=== PATIENT | female | born 1935 | race Caucasian/White ===

== ENCOUNTER → 2018-04-22 16:26 | Outpatient (REF) | payer MEDICARE, OTHER, SELFPAY | LOC: NCHCN 16:26 | PROVIDERS: PCP Internal Medicine; Visit Provider Internal Medicine | DX: N39.0 Urinary tract infection, site not specified (principal) | CPT/HCPCS: 87077; 87086; 87186 ==

== ENCOUNTER 2018-09-16 15:12 | Outpatient (REF) | payer MEDICARE, OTHER, SELFPAY ==
[2018-09-16 18:34] LABS: HCT 42.4 % (36.0-46.0); HGB 13.7 g/dL (12.0-15.5); Mean Corp. HGB Concentration 32.3 g/dL (32.0-36.0); Mean Corpuscular Hemoglobin 29.8 pg (27.0-33.0); Mean Corpuscular Volume 92.2 fL (80-95); Mean Platelet Volume 10.9 fL (8.0-11.0); Platelet Count 231 x1000/uL (130-400); RBC Distribution Width 13.8 % (11.7-14.6); White Blood Cell Count 8.24 k/cumm (4.4-10.8)
[2018-09-16 18:54] LABS: ALT 19 U/L (12-78); Anion Gap 8.2 mmol/L (3-11); BUN 20 mg/dL (7-18); CO2 29.8 mmol/L (21.0-32.0); CREATININE 0.84 mg/dL (0.55-1.02); Calcium 9.5 mg/dL (8.5-10.1); Chloride 108 mmol/L (98-107); Cholesterol 147 mg/dL (50-200); Glucose 104 mg/dL (70-100); HDL Cholesterol 39 mg/dL (40-60); LDL CHOLESTEROL 86 mg/dL (<100); Potassium 4.3 mmol/L (3.5-5.1); Sodium 146 mmol/L (136-145); TSH 0.81 uIU/mL (0.358-3.74); Triglyceride 202 mg/dL (30-150)
== END 2018-09-16 15:32 ==
LOC: NCHCN 15:12
PROVIDERS: PCP Internal Medicine; Visit Provider Internal Medicine
DX: I48.0 Paroxysmal atrial fibrillation (principal); R78.5 Finding of other psychotropic drug in blood; E11.9 Type 2 diabetes mellitus without complications
CPT/HCPCS: 80048; 80061; 83721; 85027; 84443; 84460

== ENCOUNTER 2018-10-13 13:17 | Outpatient (REF) | payer MEDICARE, OTHER, SELFPAY ==
--- NOTE | 2018-10-13 12:00 | PAPNONF_PTH ---
PATIENT: Jennifer Suggs LOC: [facility] U#:[id number] AGE/SX: 83/F ROOM: RE10/13/[address]: Roger Solorio : 1935 BED: DIS: 10/13/2018 SPEC #: [id number] RECD: 10/14/18 12:41 STATUS: ASHLEY REQ #: [id number] DIONTE: 10/13/18 12:[address]: Roger Solorio DEPT: [facility] Cytology RECD BY: Aretha Jarrell Tissues: 1 - BODY FLUID CYTO(SPUTUM/URINE)[facility] Procedures: BODY FLUID CYTO(URINE/SPUTUM) Comments: [id number] (TOTAL VOLUME = 60 ml's) (30 ml'S URINE & 30 ml'S CYTOLYT ADDED IN 2 CONTAINERS)
== END 2018-10-13 13:37 ==
LOC: NCHCN 13:17
PROVIDERS: PCP Internal Medicine; Visit Provider Internal Medicine
DX: N39.0 Urinary tract infection, site not specified (principal); R31.9 Hematuria, unspecified; R82.8 Abnormal findings on cytological and histological examination of urine
CPT/HCPCS: 87077; 87086; 87186; 88104

== ENCOUNTER 2018-11-05 12:09 | Outpatient (REF) | payer MEDICARE, OTHER, SELFPAY ==
[2018-11-05 19:36] LABS: HCT 41.1 % (36.0-46.0); HGB 13.4 g/dL (12.0-15.5); Mean Corp. HGB Concentration 32.6 g/dL (32.0-36.0); Mean Corpuscular Hemoglobin 29.8 pg (27.0-33.0); Mean Corpuscular Volume 91.3 fL (80-95); Mean Platelet Volume 10.3 fL (8.0-11.0); Platelet Count 281 x1000/uL (130-400); White Blood Cell Count 7.32 k/cumm (4.4-10.8)
[2018-11-05 20:09] LABS: Bacteria Moderate HPF (Negative); C & S Indicated? Yes; Casts Negative LPF (Negative); Crystals Negative HPF (Negative); Epithelial Cells Negative HPF (Negative); Mucus Negative (Negative); Other Cells Negative (Negative); RBC >50 (0-2); WBC >50 HPF (0-5)
[2018-11-05 20:25] LABS: FREE T4 1.35 ng/dL (0.76-1.46); TSH 3.28 uIU/mL (0.358-3.74)
== END 2018-11-05 12:29 ==
LOC: NCHCN 12:09
PROVIDERS: PCP Internal Medicine; Visit Provider Internal Medicine
DX: I50.9 Heart failure, unspecified (principal); I48.0 Paroxysmal atrial fibrillation; R31.0 Gross hematuria; E11.9 Type 2 diabetes mellitus without complications
CPT/HCPCS: 85027; 87077; 81015; 84439; 84443; 87086; 87186

== ENCOUNTER → 2018-11-29 14:28 | Outpatient (BNVA) | payer MEDICARE, OTHER, SELFPAY | PROVIDERS: PCP Internal Medicine; Visit Provider Nurse Practitioner Gerontology | DX: R31.0 Gross hematuria (principal); I11.0 Hypertensive heart disease with heart failure; I50.9 Heart failure, unspecified; N20.0 Calculus of kidney | CPT/HCPCS: 81003; 99204 ==

== ENCOUNTER 2018-11-29 16:08 | Outpatient (REF) | payer MEDICARE, OTHER, SELFPAY ==
[2018-11-29 17:18] LABS: Bacteria Moderate HPF (Negative); C & S Indicated? C&S Done As Ordered; RBC >50 (0-2)
== END 2018-11-29 16:28 ==
LOC: LBN 16:08
PROVIDERS: PCP Internal Medicine; Visit Provider Nurse Practitioner Gerontology
DX: R31.9 Hematuria, unspecified (principal)
CPT/HCPCS: 81015; 87086

== ENCOUNTER → 2018-12-21 09:16 | Outpatient (BNVA) | payer MEDICARE, OTHER, SELFPAY | PROVIDERS: PCP Internal Medicine; Visit Provider Urology | DX: R31.29 Other microscopic hematuria (principal); N39.0 Urinary tract infection, site not specified; N20.0 Calculus of kidney; E11.9 Type 2 diabetes mellitus without complications | CPT/HCPCS: 81003; 99213; 96372; J0696 ==

== ENCOUNTER 2018-12-21 10:51 | Outpatient (REF) | payer MEDICARE, OTHER, SELFPAY | END 2018-12-21 11:11 | LOC: LBN 10:51 | PROVIDERS: PCP Internal Medicine; Visit Provider Urology | DX: R31.9 Hematuria, unspecified (principal) | CPT/HCPCS: 87086 ==

== ENCOUNTER 2019-05-09 15:03 | Outpatient (REF) | payer MEDICARE, OTHER, SELFPAY ==
[2019-05-09 19:37] LABS: TSH 2.41 uIU/mL (0.36-3.74)
== END 2019-05-09 15:23 ==
LOC: NCHCN 15:03
PROVIDERS: PCP Internal Medicine; Visit Provider Internal Medicine
DX: E11.9 Type 2 diabetes mellitus without complications (principal); I48.0 Paroxysmal atrial fibrillation; N20.9 Urinary calculus, unspecified; L84 Corns and callosities
CPT/HCPCS: 84443

== ENCOUNTER 2019-10-13 21:18 | Outpatient (REF) | payer MEDICARE, OTHER, SELFPAY ==
[2019-10-13 19:20] LABS: HCT 41.5 % (36.0-46.0); HGB 13.1 g/dL (12.0-15.5); Mean Corp. HGB Concentration 31.6 g/dL (32.0-36.0); Mean Corpuscular Hemoglobin 29.5 pg (27.0-33.0); Mean Corpuscular Volume 93.5 fL (80-95); Mean Platelet Volume 10.7 fL (8.0-11.0); Platelet Count 215 x1000/uL (130-400); RBC 4.44 m/cumm (4.00-5.20); RBC Distribution Width 14.1 % (11.7-14.6); White Blood Cell Count 6.08 k/cumm (4.4-10.8)
[2019-10-13 20:07] LABS: TSH 1.93 uIU/mL (0.36-3.74); Vitamin B12 958 pg/mL (193-986)
== END 2019-10-13 21:38 ==
LOC: NCHCN 21:18
PROVIDERS: PCP Internal Medicine; Visit Provider Internal Medicine
DX: G25.0 Essential tremor (principal); G30.9 Alzheimer's disease, unspecified; I48.0 Paroxysmal atrial fibrillation; H35.61 Retinal hemorrhage, right eye
CPT/HCPCS: 85027; 82607; 84443

== ENCOUNTER 2020-06-25 15:05 | Outpatient (REF) | payer MEDICARE, OTHER, SELFPAY ==
[2020-06-25 19:28] LABS: HCT 43.4 % (36.0-46.0); MCH 30.2 pg (27.0-33.0); MCHC 32.3 % (32.0-36.0); MCV 93.7 fL (80-95); MPV 10.4 fL (8.0-11.0); Platelet Count 218 10^3/uL (130-400); RBC 4.63 10^6/uL (3.93-5.22); RDW 12.9 % (11.7-14.6); RDW-SD 44.1 fL; WBC 7.38 10^3/uL (4.4-10.8)
[2020-06-25 20:00] LABS: TSH 1.51 uIU/mL (0.36-3.74)
== END 2020-06-25 15:25 ==
LOC: NCHCN 15:05
PROVIDERS: PCP Internal Medicine; Visit Provider Internal Medicine
DX: E11.9 Type 2 diabetes mellitus without complications (principal); I48.0 Paroxysmal atrial fibrillation; E66.9 Obesity, unspecified
CPT/HCPCS: 85027; 84443

== ENCOUNTER 2020-09-27 14:56 | Outpatient (REF) | payer SELFPAY ==
[2020-09-27 15:42] LABS: COMMENT (LAB VIEW ONLY) 89.05 mg/dL; Microalb ug/mg Crea 23.1 ug/mg Cr
== END 2020-09-27 15:16 ==
LOC: NCHCN 14:56
PROVIDERS: PCP Internal Medicine; Visit Provider Internal Medicine
DX: E11.9 Type 2 diabetes mellitus without complications (principal); I48.0 Paroxysmal atrial fibrillation; G30.9 Alzheimer's disease, unspecified
CPT/HCPCS: 82043; 82570

== ENCOUNTER 2021-02-06 11:29 | Outpatient (REF) | payer OTHER, SELFPAY ==
--- OUTSIDE RECORDS SUMMARY | 2021-02-06 11:31 | XMS_ITS ---
:1935 Author Care Team Providers Name Role Phone AR LARA MD Primary Care Provider [phone] FELICIANO HELMS MD Applique Cutter [phone] Allergies Code Code System Name Reaction Severity Status Onset Sulfa ? ? Active ? (Sulfonamid e Antibiotics ) Medications Name Status Start Date Stop Date ? ? acetazolamide 250 mg tablet Active ? Not available Take 1 tablet every 6 hours by oral route. amiodarone 200 mg tablet Completed ? 019 amoxicillin 250 mg capsule Completed ? 05/16 Take 250 mg 3 times a day by oral route. amoxicillin 500 mg capsule Completed ? 07/20 amoxicillin 500 mg tablet Completed ? 2018 Take 500 mg 3 times a day by oral route. first dose at home in the evening on 05/16/18 anastrozole 1 mg tablet Active ? Not avai lable Aspirin Low-Strength 81 mg chewable tablet Completed ? 07/20/2019 Chew 81 mg every day by oral route. atorvastatin 10 mg tablet Active ? Not av ailable Carafate 1 gram tablet Completed ? 9 Take 1 tablet 4 times a day by oral route. Cartia XT 120 mg capsule,extended Active ? Not available release Cartia XT 180 mg capsule,extended Completed ? 07/20/2019 release cephalexin 500 mg capsule Completed ? 2018 DILT-XR 120 mg capsule, extended Active ? Not available release diltiazem ER 180 mg capsule,24 hr,extended release Active ? Not available Take 1 capsule every day by oral route. furosemide 40 mg tablet Completed ? 07/20/20 19 glipizide 10 mg tablet Active ? Not avail able Take 1 tablet every day by oral route. glipizide ER 10 mg tablet, Completed ? 05/16 extended release 24 hr glipizide ER 5 mg tablet, Active ? Not av ailable extended release 24 hr lisinopril 10 mg tablet Completed ? 07/20/20 19 lisinopril 20 Active ? Not available mg-hydrochlorothiazide 12.5 mg tablet metformin 850 mg tablet Active ? Not avai lable methimazole 5 mg tablet Active ? Not avai lable metoprolol succinate ER 100 mg Active ? N ot available tablet,extended release 24 hr metoprolol succinate ER 200 mg Completed ? 1 09/19/2018 tablet,extended release 24 hr metoprolol tartrate 50 mg tablet Active ? Not available nitrofurantoin 100 mg capsule Completed ? Take 1 capsule twice a day by oral route. omeprazole 20 mg capsule,delayed Active ? Not available release ondansetron 4 mg disintegrating tablet Completed ? 07/20/2019 Take 1 tablet every 6 hours by oral route. pioglitazone 15 mg tablet Completed ? 2017 PreserVision AREDS Active ? Not available 1 tablet by mouth once daily sulfamethoxazole 800 Active ? Not availab le mg-trimethoprim 160 mg tablet timolol maleate 0.5 % eye drops Active ? Not available Toprol XL 50 mg tablet,extended release Completed 04/20/20 12 05/23/2016 1 Tablet ER 24HR Tablet ER 24HR: daily Tylenol-Codeine #3 300 mg-30 mg tablet Active ? Not available Take 1 tablet every 6 hours by oral route. warfarin 2.5 mg tablet Active ? Not avail able Zocor 20 mg tablet Completed 04/20/2012 05/23/2016 1 Tablet Tablet: daily Problems Name Status Onset Date Source ? Idiopathic Osteoarthritis Active ? 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 Histor y Procedure by Method Active ? History Umbilical Hernia Active ? History Procedures Date Name Performed by ? 04/13/2012 Hernia Repair Information not avai labtri Notes: Umbilical/incarcerated 05/09/2002 Cholecystectomy Information not avai lable 02/10/2019 US, Echocardiogram [facility] (Internal) [address] [place] [address] (Work Place) 07/20/2019 Event Monitor [facility] Cardio pulmonary [address] [place] [address] (Work Place) Notes: Left Masectomy Results Lab Results Date Name Specimen Result Interpretation Description Value Range Status Address ? 07/11/2019 Troponin I, S - Trop <0.06 NG/mL 0.00-0.06 [facility] Serum or Plasma NG[facility] [address] t 07/11/2019 CMP, Serum or S High g/r 152 mg/dL 74-106 Fin al [place] Plasma mg/dL [facility] [address] t ? ? S - Bun 15 mg/dL 7-17 mg/dL Final Nort h [facility] (Internal) : [address] t ? ? S - Crea 0.70 mg/dL 0.52-1.04 Final Nor th mg/dL [facility] ([facility] : [address] t ? ? S - Ca 9.8 mg/dL 8.4-10.2 Final [facility] mg/dL [facility] ([facility] : [address] ? ? S - Na 140 mmol/L 137-145 Final North mmol/L [facility] (Internal) : [address] t ? ? S - K 4.2 mmol/L 3.5-5.1 Final [place] mmol/L [facility] (Internal) : [address] t ? ? S - Cl 102 mmol/L 98-107 Final [place] mmol/L [facility] (Internal) : [address] t ? ? S High Tco2 31.0 mmol/L 22.0-30.0 Final No rth mmol/L [facility] ([facility]) : [address] ? ? S - Tp 6.6 g/dL 6.3-8.2 Final [place] g/dL [facility] (Internal) : [address] t ? ? S - Alb 3.8 g/dL 3.5-5.0 Final [place] g/dL [facility] (Internal) : [address] t ? ? S - Tbil 0.3 mg/dL 0.2-1.3 Final [place] mg/dL [facility] (Internal) : [address] t ? ? S - Alp 83 U/L 38-126 U/L Final [facility] (Internal) : [address] t ? ? S - Alt 20 U/L 9-52 U/L Final [place] (Sgpt) [facility] (Internal) : [address], [place] t ? ? S - Ast 22 U/L 14-36 U/L Final [place] (Sgot) [facility] (Internal) : [address] 07/11/2019 CBC W/ Auto BLD - Wbc 5.9 10*3/uL 5.0-10.0 F inal [place] Diff 10*3/uL [facility] ([facility] : [address] ? ? BLD - Rbc 4.33 4.10-5.30 Final North 10*6/uL 10*6/uL [facility] ([facility]) : [address] t ? ? BLD - Hgb 12.8 g/dL 12.0-16.0 Final Nort h g/dL [facility] (Internal) : [address] ? ? BLD - Hct 40.6 % 37.0-47.0 Final [facility] L [facility] (Internal) : [address] ? ? BLD - Mcv 93.8 fL 80.0-96.0 Final [facility] (Internal) : [address] ? ? BLD - Mch 29.6 pg 26.0-32.0 Final [place] pg [facility] (Internal) : [address] ? ? BLD - Mchc 31.5 g/dL 31.0-35.0 Final Nort h g/dL [facility] (Internal) : [address] ? ? BLD - Rdw 13.6 % 11.5-14.5 Final [facility] (Internal) : [address] ? ? BLD - Plt 188 10*3/uL 130-450 Final Nort h 10*3/uL [facility] (Internal) : [address] t ? ? BLD - Anc 3.13 ? Final [place] 10*3/uL [facility] (Internal) : [address] t ? ? BLD - Neutro 53.4 % 40.0-75.0 Final [facility] (Internal) : [address] [facility] ? ? BLD - Lymph 33.8 % 20.0-50.0 Final [facility] (Internal) : [address] [facility] ? ? BLD - Will 9.1 % 2.0-10.0 % Final [facility] (Internal) : [address] [facility] ? ? BLD - Eos 2.6 % 1.0-6.0 % Final [facility] (Internal) : [address] [facility] ? ? BLD - Baso 0.9 % 0.0-1.0 % Final [facility] (Internal) : [address] [facility] ? ? BLD - Ig 0.2 % 0.0-0.9 % Final [facility] (Internal) : [address] [facility] 07/11/2019 Magnesium, QN, S - mg 2.0 mg/dL 1.6-2.3 F inal [place] Serum or Plasma mg/dL [facility] L [facility] (Internal) : [address] [facility] 07/11/2019 CK (Creatine S Low Cpk <20 U/L 30-135 U/L [facility] Kinase), Total, C [facility] L ab (Internal) : [address] [facility] 07/11/2019 Prothrombin BLD - Pt 11.6 S 9.1-11.7 S Sujata l [facility] L ab (Internal) : [address] [facility] ? ? BLD - Inr 1.2 ? [facility] L ab (Internal) : [address] [facility] 07/11/2019 Partial BLD - PTT 23 s 22-35 s Final Nort h Thromboplastin (Ip) [facility] L ab (Internal) : [address] [facility] 07/11/2019 Troponin I, S - Trop <0.06 NG/mL 0.00-0.06 [facility] Serum or Plasma NG/mL [facility] L [facility] (Internal) : [address] [facility] 06/13/2019 CBC W/ Auto BLD - Wbc 7.7 10*3/uL 5.0-10.0 F inal [place] Diff 10*3/uL [facility] (Internal) : [address] ? ? BLD - Rbc 4.54 4.10-5.30 Final North 10*6/uL 10*6/uL [facility] (Internal) : [address] ? ? BLD - Hgb 13.7 g/dL 12.0-16.0 Final Nort h g/dL [facility] (Internal) : [address] t ? ? BLD - Hct 41.5 % 37.0-47.0 Final [facility] L [facility] (Internal) : [address] t ? ? BLD - Mcv 91.4 fL 80.0-96.0 Final [facility] (Internal) : [address] t ? ? BLD - Mch 30.2 pg 26.0-32.[address] [facility] L [facility] (Internal) : [address] t ? ? BLD - Mchc 33.0 g/dL 31.0-35.0 Final Nort h g/dL [facility] (Internal) : [address] t ? ? BLD - Rdw 13.8 % 11.5-14.5 Final [facility] L ab (Internal) : [address] t ? ? BLD - Plt 170 10*3/uL 130-450 Final Nort h 10*3/uL [facility] (Internal) : [address] t ? ? BLD - Anc 5.72 ? Final [place] 10*3/uL [facility] (Internal) : [address] t ? ? BLD - Neutro 74.1 % 40.0-75.0 Final [facility] (Internal) : [address] ? ? BLD Low Lymph 18.1 % 20.0-50.0 Final [facility] (Internal) : [address] ? ? BLD - Will 6.0 % 2.0-10.0 % Final [facility] (Internal) : [address] ? ? BLD Low Eos 0.8 % 1.0-6.0 % Final [facility] (Internal) : [address] ? ? BLD - Baso 0.6 % 0.0-1.0 % Final [facility] (Internal) : [address] ? ? BLD - Ig 0.4 % 0.0-0.9 % Final [facility] (Internal) : [address] 06/13/2019 Prothrombin BLD High Pt 14.1 S 9.1-11.7 S Sujata l [facility] L ab (Internal) : [address] ? ? BLD - Inr 1.4 ? Final [facility] (Internal) : [address] 06/13/2019 CMP, Serum or S High g/r 220 mg/dL 74-106 Fin al [place] Plasma mg/dL [facility] (Internal) : [address] t ? ? S - Bun 14 mg/dL 7-17 mg/dL Final Nort h [facility] (Internal) : [address] ? ? S - Crea 0.70 mg/dL 0.52-1.04 Final Nor th mg/dL [facility] (Internal) : [address] ? ? S - Ca 10.0 mg/dL 8.4-10.2 Final Nort h mg/dL [facility] (Internal) : [address] ? ? S - Na 138 mmol/L 137-145 Final North mmol/L [facility] (Internal) : [address] ? ? S Low K 3.4 mmol/L 3.5-5.1 Final [place] mmol/L [facility] (Internal) : [address] ? ? S - Cl 101 mmol/L 98-107 Final [place] mmol/L [facility] (Internal) : [address] ? ? S - Tco2 24.0 mmol/L 22.0-30.0 Final No rth mmol/L [facility] (Internal) : [address] ? ? S - Tp 7.6 g/dL 6.3-8.2 Final [place] g/dL [facility] (Internal) : [address] ? ? S - Alb 4.3 g/dL 3.5-5.0 Final [place] g/dL [facility] (Internal) : [address] ? ? S - Tbil 0.4 mg/dL 0.2-1.3 Final [place] mg/dL [facility] (Internal) : [address] t ? ? S - Alp 112 U/L 38-126 U/L Final [facility] L ab (Internal) : [address] ? ? S - Alt 23 U/L 9-52 U/L Final [place] (Sgpt) [facility] (Internal) : [address] ? ? S - Ast 28 U/L 14-36 U/L Final [place] (ot) [facility] (Internal) : [address] 06/13/2019 Troponin I, S - Trop <0.06 NG/mL 0.00-0.06 Final [place] Serum or Plasma NG/mL [facility] L ab (Internal) : [address] 05/16/2018 Cbc BLD - Wbc 8.4 10*3/uL 5.0-10.0 Final [place] 10*3/uL [facility] (Internal) : [address] ? ? BLD - Rbc 4.22 4.10-5.30 Final [place] 10*6/uL 10*6/uL [facility] (Internal) : [address] ? ? BLD - Hgb 12.2 g/dL 12.0-16.0 Final Nort h g/dL [facility] (Internal) : [address] ? ? BLD - Hct 37.4 % 37.0-47.0 Final [place] % [facility] (Internal) : [address] ? ? BLD - Mcv 88.6 fL 80.0-96.0 Final [facility] L ab (Internal) : [address], [place] ? ? BLD - Mch 28.9 pg 26.0-32.0 Final [facility] pg [facility] (Internal) : [address] ? ? BLD - Mchc 32.6 g/dL 31.0-35.0 Final Nort [facility] g/dL [facility] (Internal) : [address] ? ? BLD - Rdw 12.8 % 11.5-14.5 Final [facility] % [facility] (Internal) : [address] ? ? BLD - Plt 350 10*3/uL 130-450 Final Nort h 10*3/uL [facility] (Internal) : [address] ? ? BLD - Anc 4.99 ? Final [place] 10*3/uL [facility] (Internal) : [address] 05/16/2018 BMP, Serum or S High g/r 138 mg/dL 74-106 Fin al [place] Plasma mg/dL [facility] (Internal) : [address] ? ? S High Bun 19 mg/dL 7-17 mg/dL Final [facility] (Internal) : [address] ? ? S - Crea 0.60 mg/dL 0.52-1.04 Final [facility] mg/dL [facility] (Internal) : [address] ? ? S - Ca 9.8 mg/dL 8.4-10.2 Final [place] mg/dL [facility] (Internal) : [address] ? ? S Low Na 136 mmol/L 137-145 Final [place] mmol/L [facility] (Internal) : [address] ? ? S - K 3.7 mmol/L 3.5-5.1 Final [place] mmol/L [facility] (Internal) : [address] ? ? S - Cl 98 mmol/L 98-107 Final [place] mmol/L [facility] (Internal) : [address] ? ? S - Tco2 28.0 mmol/L 22.0-30.0 Final No rth mmol/L [facility] (Internal) : [address] 05/15/2018 Cbc BLD High Wbc 11.0 5.0-10.0 Final Nort h 10*3/uL 10*3/uL [facility] (Internal) : [address] ? ? BLD - Rbc 4.30 4.10-5.30 Final North 10*6/uL 10*6/uL [facility] (Internal) : [address] ? ? BLD - Hgb 12.4 g/dL 12.0-16.0 Final Nort h g/dL [facility] (Internal) : [address] ? ? BLD - Hct 38.4 % 37.0-47.0 Final [facility] (Internal) : [address] ? ? BLD - Mcv 89.3 fL 80.0-96.0 Final [facility] (Internal) : [address] ? ? BLD - Mch 28.8 pg 26.0-32.0 Final [place] pg [facility] (Internal) : [address] ? ? BLD - Mchc 32.3 g/dL 31.0-35.0 Final Nort h g/dL [facility] (Internal) : [address] ? ? BLD - Rdw 13.0 % 11.5-14.5 Final [facility] L [facility] (Internal) : [address] ? ? BLD - Plt 362 10*3/uL 130-450 Final Nort h 10*3/uL [facility] (Internal) : [address] ? ? BLD - Anc 6.95 ? Final [place] 10*3/uL [facility] (Internal) : [address] 05/15/2018 BMP, Serum or S High g/r 172 mg/dL 74-106 Fin al [place] Plasma mg/dL [facility] (Internal) : [address] ? ? S - Bun 17 mg/dL 7-17 mg/dL Final Nort h [facility] (Internal) : [address] ? ? S - Crea 0.60 mg/dL 0.52-1.04 Final Nor th mg/dL [facility] (Internal) : [address] ? ? S - Ca 9.9 mg/dL 8.4-10.2 Final [place] mg/dL [facility] (Internal) : [address] ? ? S Low Na 136 mmol/L 137-145 Final [place] mmol/L [facility] (Internal) : [address] ? ? S - K 3.5 mmol/L 3.5-5.1 Final [place] mmol/L [facility] (Internal) : [address] ? ? S - Cl 99 mmol/L 98-107 Final [place] mmol/L [facility] (Internal) : [address] ? ? S - Tco2 26.0 mmol/L 22.0-30.0 Final No rth mmol/L [facility] (Internal) : [address] 05/14/2018 Troponin I, S - Trop <0.06 NG/mL 0.00-0.06 Final [place] Serum or Plasma NG/mL [facility] L ab (Internal) : [address] 05/14/2018 Cbc BLD High Wbc 11.6 5.0-10.0 Final Nort h 10*3/uL 10*3/uL [facility] (Internal) : [address] ? ? BLD Low Rbc 4.02 4.10-5.30 Final [place] 10*6/uL 10*6/uL [facility] (Internal) : [address] ? ? BLD Low Hgb 11.8 g/dL 12.0-16.0 Final Nort h g/dL [facility] (Internal) : [address] ? ? BLD Low Hct 36.8 % 37.0-47.0 Final [place] % [facility] (Internal) : [address] ? ? BLD - Mcv 91.5 fL 80.0-96.0 Final [facility] L ab (Internal) : [address] ? ? BLD - Mch 29.4 pg 26.0-32.0 Final [facility] pg [facility] (Internal) : [address] ? ? BLD - Mchc 32.1 g/dL 31.0-35.0 Final [facility] g/dL [facility] (Internal) : [address] ? ? BLD - Rdw 12.9 % 11.5-14.5 Final [facility] % [facility] (Internal) : [address] ? ? BLD - Plt 290 10*3/uL 130-450 Final Nort [facility] 10*3/uL [facility] (Internal) : [address] ? ? BLD - Anc 8.69 ? Final [place] 10*3/uL [facility] (Internal) : [address] 05/14/2018 BMP, Serum or S High g/r 150 mg/dL 74-106 Fin al [place] Plasma mg/dL [facility] (Internal) : [address] ? ? S - Bun 13 mg/dL 7-17 mg/dL Final Nort h [facility] (Internal) : [address] ? ? S Low Crea 0.50 mg/dL 0.52-1.04 Final [facility] mg/dL [facility] (Internal) : [address] ? ? S - Ca 9.4 mg/dL 8.4-10.2 Final [place] mg/dL [facility] (Internal) : [address] ? ? S - Na 138 mmol/L 137-145 Final [place] mmol/L [facility] (Internal) : [address] ? ? S - K 3.5 mmol/L 3.5-5.1 Final [facility] mmol/L [facility] (Internal) : [address] ? ? S - Cl 101 mmol/L 98-107 Final [place] mmol/L [facility] (Internal) : [address] ? ? S - Tco2 27.0 mmol/L 22.0-30.0 Final No rth mmol/L [facility] (Internal) : [address] 05/14/2018 Troponin I, S - Trop <0.06 NG/mL 0.00-0.06 Final [place] Serum or Plasma NG/mL [facility] L ab (Internal) : [address] 05/14/2018 Urinalysis, UR - UA-col yellow pale Final [place] Dipstick, or yellow [facility] (Internal) : [address] ? ? UR - UA-max clear clear Final [facility] L ab (Internal) : [address] ? ? UR - UA-spe 1.010 1.003-1.[address] [facility] L ab (Internal) : [address] ? ? UR - UA-pH 6.5 [pH] 4.6-8.0 Final [place] [pH] [facility] (Internal) : [address] ? ? UR ABNORMAL UA-luz maria moderate negative Final [facility] k Est [facility] L [facility] (Internal) : [address] ? ? UR - UA-nit negative negative [facility] : [address] ? ? UR - UA-pro negative negative Final [facility] L ab (Internal) : [address] ? ? UR - UA-glu negative negative Final [facility] L ab (Internal) : [address] ? ? UR - UA-ket negative negative Final [facility] L ab (Internal) : [address] ? ? UR - UA-uro normal normal Final [facility] L ab (Internal) : [address] ? ? UR - UA-lucas negative negative Final [place] i [facility] L ab (Internal) : [address] ? ? UR ABNORMAL UA-blo moderate negative Final Nor od [facility] (Internal) : [address] 05/14/2018 Urinalysis, UR ABNORMAL UA-WBC 10-25 [hpf] 0-3 [hp f] Final [place] [facility] L ab (Internal) : [address] ? ? UR ABNORMAL UA-RBC 25-50 [hpf] 0-2 [hpf] Final [facility] L ab (Internal) : [address] ? ? UR ABNORMAL UA-rogers few [hpf] none seen Final N orth teria [hpf] [facility] L ab (Internal) : [address] ? ? UR - UA-epi rare [hpf] none seen Final No rth thelial [hpf] [facility] L [facility] (Internal) : [address] ? ? UR - UA-muc none seen none seen Final Nor th us [hpf] [hpf] [facility] L ab (Internal) : [address] 05/14/2018 Troponin I, S - Trop <0.06 NG/mL 0.00-0.06 Final [place] Serum or Plasma NG/mL [facility] L ab (Internal) : [address] 05/14/2018 Culture ([place] UR - Final microbiolog ? Final [place] Count), Urine y results [facility] (Internal) : [address] 04/30/2018 CBC W/ Auto BLD High Wbc 12.9 5.0-10.0 Final [place] Diff 10*3/uL 10*3/uL [facility] L [facility] (Internal) : [address] ? ? BLD - Rbc 4.73 4.10-5.30 Final [place] 10*6/uL 10*6/uL [facility] L [facility] (Internal) : [address] ? ? BLD - Hgb 14.0 g/dL 12.0-16.0 Final Nort h g/dL [facility] (Internal) : [address] ? ? BLD - Hct 44.0 % 37.0-47.0 Final [place] % [facility] L ab (Internal) : [address] ? ? BLD - Mcv 93.0 fL 80.0-96.0 Final [place] fL [facility] L [facility] (Internal) : [address] ? ? BLD - Mch 29.6 pg 26.0-32.0 Final [place] [facility] L ab (Internal) : [address] ? ? BLD - Mchc 31.8 g/dL 31.0-35.0 Final Nort h g/dL [facility] L ab (Internal) : [address] ? ? BLD - Rdw 13.1 % 11.5-14.5 Final [facility] L ab (Internal) : [address] ? ? BLD - Plt 263 10*3/uL 130-450 Final Nort h 10*3/uL [facility] L ab (Internal) : [address] ? ? BLD - Anc 10.26 ? Final [place] 10*3/uL [facility] L ab (Internal) : [address] ? ? BLD High Neutro 79.7 % 40.0-75.0 Final [facility] L ab (Internal) : [address] ? ? BLD Low Lymph 11.5 % 20.0-50.0 Final [facility] L ab (Internal) : [address] ? ? BLD - Will 5.3 % 2.0-10.0 % Final [facility] L ab (Internal) : [address] ? ? BLD - Eos 2.6 % 1.0-6.0 % Final [facility] L ab (Internal) : [address] ? ? BLD - Baso 0.6 % 0.0-1.0 % Final [facility] L ab (Internal) : [address] ? ? BLD - Ig 0.3 % 0.0-0.9 % Final [facility] L ab (Internal) : [address] 04/30/2018 Prothrombin BLD High Pt 12.1 S 9.1-11.7 S Sujata l [facility] L ab (Internal) : [address] ? ? BLD - Inr 1.2 ? Final [facility] L ab (Internal) : [address] 04/30/2018 CMP, Serum or S High g/r 208 mg/dL 74-106 Fin al [facility] Plasma mg/dL [facility] L ab (Internal) : [address] ? ? S - Bun 12 mg/dL 7-17 mg/dL Final [facility] (Internal) : [address] ? ? S - Crea 0.70 mg/dL 0.52-1.04 Final Nor th mg/dL [facility] L [facility] (Internal) : [address] ? ? S - Ca 10.2 mg/dL 8.4-10.2 Final Nort h mg/dL [facility] L ab (Internal) : [address] ? ? S - Na 140 mmol/L 137-145 Final [facility] mmol/L [facility] L ab (Internal) : [address] ? ? S - K 3.8 mmol/L 3.5-5.1 Final [facility] mmol/L [facility] L [facility] (Internal) : [address] t ? ? S - Cl 102 mmol/L 98-107 Final [place] mmol/L [facility] L [facility] (Internal) : [address] t ? ? S - Tco2 28.0 mmol/L 22.0-30.0 Final No rth mmol/L [facility] L ab (Internal) : [address] ? ? S - Tp 7.3 g/dL 6.3-8.2 Final [facility] g/dL [facility] L ab (Internal) : [address] t ? ? S - Alb 4.1 g/dL 3.5-5.0 Final [place] g/dL [facility] L ab (Internal) : [address] t ? ? S - Tbil 0.7 mg/dL 0.2-1.3 Final [place] mg/dL [facility] L ab (Internal) : [address] t ? ? S - Alp 107 U/L 38-126 U/L Final [facility] L ab (Internal) : [address] t ? ? S - Alt 32 U/L 9-52 U/L Final [place] (Sgpt) [facility] L ab (Internal) : [address] t ? ? S High Ast 51 U/L 14-36 U/L Final [place] (Sgot) [facility] L [facility] (Internal) : [address] t 04/30/2018 Troponin I, S - Trop <0.06 NG/mL 0.00-0.06 Final [place] Serum or Plasma NG/mL C [facility] L ab (Internal) : [address] 04/30/2018 TSH, Serum or S - Tsh 0.81 0.47-4.68 Fin al [place] Plasma u[IU]/mL u[IU]/mL [facility] L ab (Internal) : [address] 11/18/2016 Venipuncture BLD ? Venpn* ? ? Final [facility] L ab (Internal) : [address] 11/18/2016 CMP, Serum or S High g/r 262 mg/dL 74-106 Fin [facility] Plasma mg/dL [facility] L ab (Internal) : [address] t ? ? S ? Bun 13 mg/dL 7-17 mg/dL Final Nort h [facility] L ab (Internal) : [address] t ? ? S ? Crea 0.70 mg/dL 0.52-1.04 Final Nor th mg/dL [facility] L ab (Internal) : [address] t ? ? S ? Ca 9.7 mg/dL 8.4-10.2 Final [place] mg/dL [facility] L ab (Internal) : [address] t ? ? S ? Na 141 mmol/L 137-145 Final [place] mmol/L [facility] L ab (Internal) : [address] t ? ? S ? K 4.1 mmol/L 3.5-5.1 Final [place] mmol/L [facility] L ab (Internal) : [address] t ? ? S ? Cl 100 mmol/L 98-107 Final [place] mmol/L [facility] L ab (Internal) : [address] t ? ? S ? Tco2 30.0 mmol/L 22.0-30.0 Final No rth mmol/L [facility] L ab (Internal) : [address] t ? ? S ? Tp 7.0 g/dL 6.3-8.2 Final [place] g/dL [facility] L ab (Internal) : [address] t ? ? S ? Alb 4.0 g/dL 3.5-5.0 Final [place] g/dL [facility] L ab (Internal) : [address] t ? ? S ? Tbil 0.7 mg/dL 0.2-1.3 Final [place] mg/dL [facility] L [facility] (Internal) : [address] t ? ? S ? Alp 86 U/L 38-126 U/L Final [facility] L ab (Internal) : [address] t ? ? S ? Alt 31 U/L 9-52 U/L Final [place] (Sgpt) [facility] L ab (Internal) : [address] t ? ? S ? Ast 22 U/L 14-36 U/L Final [place] (Sgot) [facility] L ab (Internal) : [address] 11/18/2016 Lipid Panel, S ? Chol 144 mg/dL 50-200 Sujata l [place] Serum mg/dL [facility] L [facility] (Internal) : [address] t ? ? S High Trig 193 mg/dL 10-150 Final [place] mg/dL [facility] L [facility] (Internal) : [address] t ? ? S ? Hdl 42 mg/dL 40-60 Final [place] mg/dL [facility] L [facility] (Internal) : [address] t ? ? S ? Ldl 63 mg/dL 0-130 Final [place] mg/dL [facility] L ab (Internal) : [address] Past Encounters 08/08/2019 Paroxysmal Atrial Fibrillation Feliciano Helms MD: [address] [place] [address], Ph. Social History Tobacco Smoking Status Never Smoker Vaccine List None recorded. Plan of Care Reminders Provider Appointments None ? ? recorded. Lab None ? ? recorded. Referral None ? ? recorded. Procedures None ? ? recorded. Surgeries None ? ? recorded. Imaging None ? ? recorded. Vitals 08/08/2019 09:15AM Consult 30 Height Weight BMI Blood Pressure 154.94 cm 95.5 kg 39.8 kg/m2 126/62 mm[Hg] 07/20/2019 10:30AM Consult 45 Blood Pressure 120/50 mm[Hg] 06/18/2016 Height Weight Blood Pressure 160.02 cm 99.79 kg 146/82 mm[Hg] 06/11/2016 Height Weight 160.02 cm 99.79 kg 05/23/2016 Height Weight Blood Pressure 160.02 cm 99.79 kg 142/84 mm[Hg]
[2021-02-06 16:54] LABS: Anion Gap 8.6 mmol/L (3-11); BUN 15 mg/dL (7-18); CO2 29.4 mmol/L (21.0-32.0); CREATININE 0.9 mg/dL (0.55-1.02); Calcium 9.5 mg/dL (8.5-10.1); Chloride 105 mmol/L (98-107); Estimated GFR 59.51 (mL/min/1.73m2); Glucose 206 mg/dL (74-106); Potassium 4.1 mmol/L (3.5-5.1); Sodium 143 mmol/L (136-145)
== END 2021-02-06 11:30 | disposition home or self-care (01) ==
LOC: NCHCN 11:29
PROVIDERS: Visit Provider Physician Assistant
DX: I10 Essential (primary) hypertension (principal)
CPT/HCPCS: 80048

== ENCOUNTER 2021-04-25 15:14 | Outpatient (CLI) | payer OTHER, SELFPAY ==
[2021-04-25 13:52] LABS: Abs Immature Grans 0.02 10^3/uL (0.0-0.06); Absolute Basophil Count 0.06 10^3/uL (0.0-0.2); Absolute Eosinophil Count 0.17 10^3/uL (0.0-0.7); Absolute Lymphocyte Count 2.85 10^3/uL (1.2-3.4); Absolute Monocyte Count 0.52 10^3/uL (0.1-0.8); Absolute Neutrophil Count 4.02 10^3/uL (1.2-6.7); Basophils % 0.8; Eosinophils % 2.2; HCT 39.9 % (36.0-46.0); HGB 12.7 g/dL (11.2-15.7); Immature Grans % 0.3; Lymphocytes % 37.3; MCH 30.2 pg (27.0-33.0); MCHC 31.8 % (32.0-36.0); MCV 94.8 fL (80-95); MPV 9.6 fL (8.0-11.0); Monocytes % 6.8; Neutrophils % 52.6; Nucleated RBC 0 %; Platelet Count 253 10^3/uL (130-400); RBC 4.21 10^6/uL (3.93-5.22); RDW 13.2 % (11.7-14.6); RDW-SD 46.1 fL; WBC 7.64 10^3/uL (4.4-10.8)
[2021-04-25 14:12] LABS: ALT 18 U/L (14-59); AST 10 U/L (15-37); Albumin 3.4 g/dL (3.4-5.0); Alkaline Phosphatase 74 U/L (46-116); Anion Gap 7.9 mmol/L (3-11); BUN 15 mg/dL (7-18); Bilirubin, Total 0.4 mg/dL (0.2-1.0); CO2 27.1 mmol/L (21.0-32.0); CREATININE 0.8 mg/dL (0.55-1.02); Calcium 9.3 mg/dL (8.5-10.1); Chloride 106 mmol/L (98-107); Glucose 196 mg/dL (74-106); Potassium 4.1 mmol/L (3.5-5.1); Sodium 141 mmol/L (136-145); Total Protein 6.6 g/dL (6.4-8.2)
== END 2021-04-25 15:15 | disposition home or self-care (01) ==
LOC: LBO 15:18
PROVIDERS: Visit Provider Nurse Practitioner Family
DX: C50.412 Malignant neoplasm of upper-outer quadrant of left female breast (principal); Z17.0 Estrogen receptor positive status [ER+]; Z79.811 Long term (current) use of aromatase inhibitors
CPT/HCPCS: 36415; 80053; 85025

== ENCOUNTER 2021-11-01 15:19 | Outpatient (REF) | payer OTHER, SELFPAY ==
[2021-11-01 20:57] LABS: Anion Gap 10.8 mmol/L (3-11); BUN 13 mg/dL (7-18); CO2 27.2 mmol/L (21.0-32.0); CREATININE 0.8 mg/dL (0.55-1.02); Calcium 9.5 mg/dL (8.5-10.1); Chloride 105 mmol/L (98-107); Glucose 198 mg/dL (74-106); Potassium 4.1 mmol/L (3.5-5.1); Sodium 143 mmol/L (136-145); TSH (W/Ref FT4) 1.94 uIU/mL (0.36-3.74)
== END 2021-11-01 15:20 | disposition home or self-care (01) ==
LOC: NCHCN 15:19
PROVIDERS: Visit Provider Physician Assistant
DX: E11.9 Type 2 diabetes mellitus without complications (principal); E05.20 Thyrotoxicosis with toxic multinodular goiter without thyrotoxic crisis or storm
CPT/HCPCS: 80048; 84443

== ENCOUNTER 2022-08-04 16:14 | Outpatient (REF) | payer OTHER, SELFPAY ==
[2022-08-04 19:17] LABS: Abs Immature Grans 0.04 10^3/uL (0.0-0.06); Absolute Basophil Count 0.07 10^3/uL (0.0-0.2); Absolute Eosinophil Count 0.13 10^3/uL (0.0-0.7); Absolute Lymphocyte Count 2.83 10^3/uL (1.2-3.4); Absolute Monocyte Count 0.58 10^3/uL (0.1-0.8); Absolute Neutrophil Count 6.41 10^3/uL (1.2-6.7); Basophils % 0.7; Eosinophils % 1.3; HCT 45.4 % (36.0-46.0); HGB 14.2 g/dL (11.2-15.7); Immature Grans % 0.4; Lymphocytes % 28.1; MCH 29.1 pg (27.0-33.0); MCHC 31.3 % (32.0-36.0); MCV 93 fL (80-95); MPV 10.3 fL (8.0-11.0); Monocytes % 5.8; Neutrophils % 63.7; Platelet Count 290 10^3/uL (130-400); RBC 4.88 10^6/uL (3.93-5.22); RDW 13.7 % (11.7-14.6); RDW-SD 46.8 fL; WBC 10.06 10^3/uL (4.4-10.8)
[2022-08-04 19:45] LABS: NT-proBNP 4083 pg/mL (<300)
== END 2022-08-04 16:15 | disposition home or self-care (01) ==
LOC: NCHCN 16:14
PROVIDERS: Visit Provider Nurse Practitioner Family
DX: E05.20 Thyrotoxicosis with toxic multinodular goiter without thyrotoxic crisis or storm (principal); I48.0 Paroxysmal atrial fibrillation; R06.02 Shortness of breath
CPT/HCPCS: 83880; 84443; 85025

== ENCOUNTER 2022-08-08 15:29 | Outpatient (REF) | payer OTHER, SELFPAY ==
[2022-08-08 18:56] LABS: ALT 20 U/L (14-59); AST 17 U/L (15-37); Albumin 3.6 g/dL (3.4-5.0); Alkaline Phosphatase 103 U/L (46-116); Anion Gap 6.9 mmol/L (3-11); BUN 24 mg/dL (7-18); Bilirubin, Total 0.6 mg/dL (0.2-1.0); CO2 28.1 mmol/L (21.0-32.0); CREATININE 1.2 mg/dL (0.55-1.02); Calcium 10.1 mg/dL (8.5-10.1); Chloride 99 mmol/L (98-107); Estimated GFR 44.08 (mL/min/1.73m2); Glucose 244 mg/dL (74-106); Potassium 4.5 mmol/L (3.5-5.1); Sodium 134 mmol/L (136-145); Total Protein 7.5 g/dL (6.4-8.2)
== END 2022-08-08 15:30 | disposition home or self-care (01) ==
LOC: NCHCN 15:29
PROVIDERS: Visit Provider Physician Assistant
DX: I10 Essential (primary) hypertension (principal); E11.9 Type 2 diabetes mellitus without complications; I48.0 Paroxysmal atrial fibrillation
CPT/HCPCS: 80053

== ENCOUNTER 2022-10-01 09:53 | Outpatient (REF) | payer MEDICARE, SELFPAY ==
[2022-10-01 23:04] LABS: Anion Gap 10.9 mmol/L (3-11); BUN 19 mg/dL (7-18); CO2 26.1 mmol/L (21.0-32.0); CREATININE 1.2 mg/dL (0.55-1.02); Calcium 9.7 mg/dL (8.5-10.1); Chloride 103 mmol/L (98-107); Estimated GFR 44.08 (mL/min/1.73m2); Glucose 384 mg/dL (74-106); Potassium 4.5 mmol/L (3.5-5.1); Sodium 140 mmol/L (136-145)
== END 2022-10-01 09:54 | disposition home or self-care (01) ==
LOC: NCHCN 09:53
PROVIDERS: Visit Provider Physician Assistant
DX: I50.9 Heart failure, unspecified (principal); I10 Essential (primary) hypertension
CPT/HCPCS: 80048

== ENCOUNTER 2022-10-24 11:12 | Outpatient (CLI) | payer MEDICARE, SELFPAY ==
--- NOTE | 2022-10-24 11:00 | RT.EKG_ITS ---
APPROVED REPORT Exam: Resting ECG Reason for Exam: cardiac evaluation Patient Location: O HR:65 bpm ECG Measurements Heart Rate 65 AXIS [place] [id number] P [id number] QRSd 152 QRS -56 QT 436 T -16 QTc 454 Conclusion Atrial fibrillation...V-rate 53- 79, irreg A-activity RBBB and LAFB...QRSd >120mS, axis(-40,240) Probable left ventricular hypertrophy...(RaVL+SV3)xQRSd >300
== END 2022-10-24 11:13 | disposition home or self-care (01) ==
LOC: DI.CARD 11:13
PROVIDERS: Visit Provider Internal Medicine Cardiovascular Disease
DX: I45.10 Unspecified right bundle-branch block (principal); I48.0 Paroxysmal atrial fibrillation; I50.30 Unspecified diastolic (congestive) heart failure; R06.02 Shortness of breath; R94.31 Abnormal electrocardiogram [ECG] [EKG]
CPT/HCPCS: 93010

== ENCOUNTER → 2022-10-24 11:22 | Outpatient (BNVA) | payer MEDICARE, SELFPAY | PROVIDERS: PCP Physician Assistant; Referring Provider Physician Assistant; Visit Provider Internal Medicine Cardiovascular Disease | DX: R06.02 Shortness of breath (principal); I48.0 Paroxysmal atrial fibrillation; I45.10 Unspecified right bundle-branch block; I50.30 Unspecified diastolic (congestive) heart failure; R60.0 Localized edema | CPT/HCPCS: 93005; 99203 ==

== ENCOUNTER → 2023-05-14 10:36 | Outpatient (BNVA) | payer MEDICARE, SELFPAY | PROVIDERS: Referring Provider Physician Assistant; Visit Provider Internal Medicine Cardiovascular Disease | DX: I48.0 Paroxysmal atrial fibrillation (principal); Z98.890 Other specified postprocedural states; I10 Essential (primary) hypertension | CPT/HCPCS: 99213 ==

== ENCOUNTER 2023-06-23 16:22 | Outpatient (REF) | payer MEDICARE, SELFPAY ==
[2023-06-23 19:28] LABS: HCT 45.3 % (36.0-46.0); HGB 14.5 g/dL (11.2-15.7); MCH 31.2 pg (27.0-33.0); MCV 97 fL (80-95); MPV 10.3 fL (8.0-11.0); Platelet Count 216 10^3/uL (130-400); RBC 4.65 10^6/uL (3.93-5.22); RDW 13.6 % (11.7-14.6); RDW-SD 48.8 fL; WBC 7.52 10^3/uL (4.4-10.8)
[2023-06-23 19:35] LABS: Anion Gap 7.9 mmol/L (3-11); BUN 16 mg/dL (7-18); CO2 28.1 mmol/L (21.0-32.0); CREATININE 0.9 mg/dL (0.55-1.02); Calcium 9.7 mg/dL (8.5-10.1); Chloride 109 mmol/L (98-107); Estimated GFR 61.87 (mL/min/1.73m2); Glucose 103 mg/dL (74-106); Potassium 4.1 mmol/L (3.5-5.1); Sodium 145 mmol/L (136-145)
[2023-06-25 11:08] LABS: Lyme Ab w Rflx to Lyme Confirm Negative (Negative)
[2023-06-26 17:26] LABS: Anaplasma phagocytophilum Negative (Negative); B. miyamotoi PCR Negative (Negative); Babesia divergens/MO-1 Negative (Negative); Babesia duncani Negative (Negative); Babesia microti Negative (Negative); Ehrlichia chaffeensis Negative (Negative); Ehrlichia ewingii/canis Negative (Negative); Ehrlichia muris eauclairensis Negative (Negative)
== END 2023-06-23 16:23 | disposition home or self-care (01) ==
LOC: NCHCN 16:22
PROVIDERS: PCP Physician Assistant; Visit Provider Nurse Practitioner Family
DX: R21 Rash and other nonspecific skin eruption (principal)
CPT/HCPCS: 80048; 85027; 87798; 86618

== ENCOUNTER 2023-09-24 19:46 | Outpatient (REF) | payer MEDICARE, SELFPAY ==
[2023-09-24 20:27] LABS: Hemoglobin A1C 7.1 % (<5.7)
[2023-09-24 20:48] LABS: COMMENT (LAB VIEW ONLY) < 13.00 mg/dL
== END 2023-09-24 19:47 | disposition home or self-care (01) ==
LOC: NCHCN 19:46
PROVIDERS: PCP Physician Assistant; Visit Provider Physician Assistant
DX: E11.9 Type 2 diabetes mellitus without complications (principal)
CPT/HCPCS: 82043; 82570; 83036

== ENCOUNTER 2025-08-07 13:00 | Outpatient (REF) | payer MEDICARE, SELFPAY ==
[2025-08-07 19:52] LABS: TSH (W/Ref FT4) 2.21 uIU/mL (0.55-4.78)
== END 2025-08-07 13:01 | disposition home or self-care (01) ==
LOC: NCHCN 13:00
PROVIDERS: PCP Physician Assistant; Visit Provider Physician Assistant
DX: E03.9 Hypothyroidism, unspecified (principal)
CPT/HCPCS: 84443